=== PATIENT | male | born 1970 | race Caucasian/White ===

== ENCOUNTER 2017-07-25 22:41 | Emergency (ER) | payer OTHER ==
--- NOTE | 2017-07-25 22:45 | ED Physician Documentation ---
General Adult - HISTORIAN Historian: patient - HPI Stated Complaint: right ear pain Chief Complaint: Earache Onset: days ago (2) Timing: still present Severity: mild Further Comments: yes (He states two days ago he started with a "sore area" on his right ear. He states he has been "stratching and picking at this spot" and now notes swelling and pain. Denies a fever) Last known Well Code/Unknown Code: Unknown - ROS CONST: no problems EYES/ENT: denies: sore throat, nasal drainage CVS/RESP: denies: cough GI/: none - PAST HX Past History: none Other History: none Surgeries/Procedures: none Immunizations: UTD Allergies/Adverse Reactions: Allergies Allergy/AdvReac Type Severity Reaction Status Date / Time No Known Allergies Allergy Verified 07/25/17 22:52 Home Medications: Ambulatory Orders Medication Instructions Recorded NK [NK] 07/25/17 - SOCIAL HX Smoking History: non-smoker Alcohol Use: none Drug Use: none - FAMILY HX Family History: No - REVIEWED ASSESSMENTS Nursing Assessment Reviewed: Yes Vitals Reviewed: Yes General Adult Physical Exam - PHYSICAL EXAM GENERAL APPEARANCE: no distress NECK: normal inspection RESPIRATORY: no resp distress, chest non-tender, breath sounds normal CVS: reg rate & rhythm, heart sounds normal, equal pulses ABDOMEN: soft SKIN: other (area around ear lobe with redness and cellulitis ) EXTREMITIES: non-tender NEURO: oriented X3, CN's nml as tested, motor nml Discharge Clincal Impression: Cellulitis and abscess of face Referrals: Primary Doctor,No [Primary Care Provider] - 2 Days Comments: Bactrim DS Take 1 by mouth BID x 10 days Ciprodex ear drops 3 drops in right ear three times per day Follow up with PCP in 3 days return to ER for any concerns Condition: Stable Disposition: HOME, SELF-CARE Decision to Admit: NO Date of Decison to Admit: 07/25/17 Decision Time: 23:29
[2017-07-25] MEDS ORDERED: methylPREDNISolone ACETATE 40 MG/ML VIAL IM ONE (23:03)
[2017-07-25] MEDS ORDERED: SULFAMETHOXAZOLE/TRIMETHOPRIM 1 EACH TABLET PO ONE (23:04)
[2017-07-25 23:40] VITALS: BP 128/68
== END 2017-07-25 23:30 | disposition home or self-care (01) ==
LOC: ED 22:41
DX: L03.211 Cellulitis of face (principal); L02.01 Cutaneous abscess of face
CPT/HCPCS: 96372; 99283; J1030; A9270